=== PATIENT | male | born 1960 | race Hispanic/Latino ===

== ENCOUNTER 2020-12-29 20:58 | Emergency (ER) | payer BC ==
[~2020-12-29] VITALS: Ht 170.2 cm; Wt 81.6 kg
[~2020-12-29 20:58] MED LIST: XYLOCAINE-MPF 1% VIAL SQ STA
--- NOTE | 2020-12-29 21:40 | NUR ---
Patient presents with C/O head injury. Patient states, "I stepped into the shower, slipped on the floor, fell and hit my head." Patient alert, no signs of distress, denies loss of consciousness, vital signs stable. Patient has laceration to right eyebrow, bleeding controlled at this time. Rates pain 6/10 throbbing, intermittent. No other complaints at this time.
[2020-12-29] MEDS ORDERED: WATER ONE (21:46)
[2020-12-29 21:48] VITALS: BP 132/82
[2020-12-29 22:30] VITALS: BP 128/80
--- NOTE | 2020-12-29 22:30 | NUR ---
ALFIE TETNUS O.5ML GIVEN LOT# [id number], EXPIRATION 12/28/2021, TO LEFT DELTOID
--- NOTE | 2020-12-29 22:33 | ER.PDOC ---
General Chief Complaint: Head Injury Stated Complaint: HEAD LAC/FALL Time seen by MD: 22:00 Source: patient, family Exam Limitations: language barrier History of Present Illness Initial Comments 60-year-old male presenting with a laceration over his right eyebrow after falling in his bathtub. Patient states that he was just stepping and slipped in water and hit his head against the bathtub top corner. Patient denies any LOC, no anticoagulation or antiplatelet use. No nausea, no vomiting, no numbness or tingling or neck pain. Patient suffered a laceration to his eyebrow and put pressure on it to help stop the bleeding. No blurred vision, no other complaints at this time Occurred: just prior to arrival Where: home Severity: mild Location: frontal Method of Injury: fell Past Medical History Medical History: no pertinent history Surgical History: no surgical history Social History Alcohol Use: none Drug Use: none Review of Systems Eyes: other (Denies any blurred vision, no spotting, no orbital pain.) Skin: other (Laceration to right eyebrow) All Other Systems: Reviewed and Negative Physical Exam General Appearance: Alert, No Apparent Distress, WD/WN Head: No Evidence of Injury Eye: PERRL, EOMI (No subconjunctival hemorrhage) ENT: Nml external inspection, Pharynx nml Neck: non-tender, painless ROM, trachea midline Cardiovascular/Respiratory: Regular Rate, Rhythm, No M/R/G, Normal Peripheral Pulses, No JVD, Normal Breath Sounds, No Respiratory Distress Gastrointestinal: Normal Bowel Sounds, No Organomegaly, No Pulsatile Mass, Non Tender, Soft Back: Normal Inspection, No CVA Tenderness, No Vertebral Tenderness Extremities: Normal Range of Motion, Non-Tender, Normal Inspection, No Calf Tenderness, Normal Capillary Refill NEURO/PSYCH: Alert, Oriented x3, Cooperative, Interactive, Mood/affect nml Cranial Nerves: Normal Hearing, Normal Speech, PERRL Coordination/Gait: Normal Finger to Nose, Normal Gait Motor/Sensory: No Motor Deficit, No Sensory Deficit, No Pronator Drift, Negative Babinski's Sign Skin: Normal Color, Warm/Dry (3 cm laceration over the right eyebrow irregular, scant bleeding.) Lymphatic: No Adenopathy ED LACERATION WOUND REPAIR # of Wounds/Lacerations Presen: 1 Wound Length (cm): 3 Distal NVT: neuro intact Anesthesia type: local Anesthesia: 1% Lidocaine Volume Anesthetic (ccs): 3 Wound's Depth, Shape: into muscle, irregular Irrigated w/ Saline (ccs): 200 Wound Explored: no foreign body removed Tendon Intact: Yes Wound Debrided: minimal Wound Repaired With: dermabond, sutures Suture Size/Type: 5:0, ethilon, nylon Suture Style: simple Number of Sutures: 7 (And 1 Ethilon 5-0 suture placed, Dermabond superficially) Layer Closure?: Yes Number Deep Layer Sutures: 7 Retention sutures placed: Yes Results/Orders Results/Orders Vital Signs Date Time Temp Pulse Resp B/P (MAP) Pulse Ox O2 Delivery O2 Flow Rate FiO2 12/29/20 21:48 98.6 88 16 12/29/20 21:48 18 12/29/20 21:48 98.6 88 16 132/82 (99) 98 Room Air 12/29/20 21:48 98.6 88 16 98 Progress Progress Patient tolerated procedure well, no glue past eyebrow bone, patient is able to slightly raise his eyebrow but does have an upper lid droop most likely secondary to swelling but only time will tell. Instructed daughter the importance of him to follow-up with plastic surgery or facial surgeon for pos sible reconstruction to reestablish utilization of his eyebrow if that function is lost. Both voiced understanding. ER DEPART Departure Time of Disposition: 22:31 Disposition: 01 HOME / SELF CARE / HOMELESS Impression: Primary Impression: Eyebrow laceration Additional Impressions: Head injury Fall Condition: Improved Patient Instructions: Facial Laceration, [id number] Referrals: PCP,UNKNOWN (PCP) PRIMARY CARE PROVIDER LION ZARAGOZA MD Additional Instructions: Follow-up with PCP or plastic surgeon of your choice for wound reevaluation in 5 to 7 days Report to primary care or ED for suture removal in 5 to 7 days Duration or Time Spent with Pa: 45 min Problem Qualifiers MITA JACK DO Dec 29, 2020 22:33
[2020-12-29] MEDS ORDERED: TENIVAC SYRINGE IM ONE (23:00)
== END 2020-12-29 22:38 | disposition home or self-care (01) ==
LOC: ER 20:58
DX: S01.111A Laceration without foreign body of right eyelid and periocular area, initial encounter (principal); W18.2XXA Fall in (into) shower or empty bathtub, initial encounter; Y93.89 Activity, other specified; Y92.89 Other specified places as the place of occurrence of the external cause; Y99.8 Other external cause status
CPT/HCPCS: 12013; 99282